=== PATIENT | female | born 1980 | race Caucasian/White ===

== ENCOUNTER 2023-11-23 10:56 | Emergency (ER) | payer MEDICAID, OTHER ==
[2023-11-23 11:13] VITALS: TEMP 98.2
[2023-11-23] MEDS ORDERED: SUBLIMAZE 100 MCG/2 ML ONE (11:20)
[2023-11-23] MEDS ORDERED: Sodium Chloride 0.9% 1000 ML 1,000 ML ONE (11:20)
[2023-11-23] MEDS ORDERED: Zofran 4 MG/2 ML VIAL ONE (11:20)
[2023-11-23] MEDS: Sodium Chloride 0.9% 1000 ML 1,000 ML IV STA (11:23)
[2023-11-23] MEDS: Zofran 4 MG/2 ML VIAL IV ONE (11:24)
[2023-11-23] MEDS: SUBLIMAZE 100 MCG/2 ML IV ONE (11:26)
[2023-11-23 12:26] VITALS: O2SAT 100
--- NOTE | 2023-11-23 12:44 | XRAY ---
CLINICAL HISTORY: fall COMPARISON: None. TECHNIQUE: A CT scan of the pelvis was performed without IV contrast. Coronal and sagittal reconstructive images were obtained. One of the following dose reduction techniques was utilized for this exam: Automated exposure control, adjustment of the mA and/or kV according to patient size, and use of iterative reconstruction. FINDINGS: No evidence of obvious fracture or dislocation was seen. Both hip joints are normal. The hip joints reveal normal rounded contour. No evidence of articular collapse. The joint spaces are normal. No loose bodies. There is no evidence of joint effusion. Bilateral sacroiliac joints appear normal. No lytic or sclerotic bone lesions. The visualized soft tissues are normal. Bilateral inguinal lymphadenopathy. IMPRESSION: No acute osseous injury or abnormality was seen in the CT scan pelvis. Electronically Signed by: Alannah Lyon MD. (11/23/2023 12:40:08 EDT)
--- NOTE | 2023-11-23 12:52 | ERPHSYRPT ---
- History of Present Illness Time Seen by Provider: 11/23/23 11:06 Source: patient Exam Limitations: no limitations Patient Subjective Stated Complaint: left hip pain, fall at work Triage Nursing Assessment: patient to ED c/o L hip pain after falling down 2 flights of stairs at work today. was at the top of stairs and hip gave out causing fall. left lower extremity externally rotated and shortened on exam. pain 8/10 improved to 6/10 with stabilization of a bedsheet. pedal pulses equal and cap reful < 3 sec distal to injury. extremities PWD, sensation less on effected side. Physician History: 43-year-old female presented in the ER after she missed a couple steps and fell on left hip prior to arrival at work. Patient reports moderate to severe sharp shooting pain in the left hip, exacerbated with minimal movements and partial relief with being still in a certain position. No numbness tingling or weakness of extremity reported. No loss of bowel or bladder control. Did not hit her head, no loss of consciousness. No midline back pain. No injury anywhere else. Allergies/Adverse Reactions: No Known Drug Allergies Allergy (Verified 11/23/23 10:57) Home Medications: Hydrochlorothiazide 25 mg [hydroDIURIL 25 MG] 1 ea DAILY 07/07/20 [History] Losartan Potassium 50 mg [Cozaar 50 MG] 1 ea DAILY 07/07/20 [History] Sertraline HCl 1 ea DAILY 07/07/20 [History] Sumatriptan Succinate 25 mg [Imitrex 25 MG] 25 mg PO DAILY PRN PRN 11/23/23 [History] Topiramate [Topiramate ER] 50 mg PO DAILY 11/23/23 [History] Hx Tetanus, Diphtheria Vaccination/Date Given: Yes Hx Influenza Vaccination/Date Given: No Hx Pneumococcal Vaccination/Date Given: No Travel Risk - International Travel Have you traveled outside of the country in past 3 weeks: No - Emerging Infectious Disease Are you exhibiting symptoms associated with any current EIDs: No - Review of Systems Constitutional: No Symptoms Eyes: No Symptoms Ears, Nose, & Throat: No Symptoms Respiratory: No Symptoms Cardiac: No Symptoms Abdominal/Gastrointestinal: No Symptoms Genitourinary Symptoms: No Symptoms Musculoskeletal: Fall, Injury, Joint Pain Skin: No Symptoms Neurological: No Symptoms Endocrine: No Symptoms Hematologic/Lymphatic: No Symptoms - Past Medical History Pertinent Past Medical History: Yes Neurological History: Migraines Cardiac History: Angina, Hypertension - Past Surgical History Past Surgical History: Yes Gastrointestinal: Cholecystectomy - Female History Hx Last Menstrual Period: last week Hx Now: No - Social History Smoking Status: Former smoker Exposure to second hand smoke: No Drug Use: none Patient Lives Alone: No - Social Determinants of Health Will the patient participate in the screening: Yes Do you worry about a steady place to live?: No Do you have any problems with any of the following?: No known problems In the past 12 months,have you had to go without utilities?: No Transportation Issues: No Has anyone in your support network made you feel unsafe?: No Have you or anyone in your house had to go without enough: No - Nursing Vital Signs Nursing Vital Signs: Initial Vital Signs Temperature 98.2 F 11/23/23 11:00 Pulse Rate 79 11/23/23 11:00 Respiratory Rate 18 11/23/23 11:00 Blood Pressure 142/115 11/23/23 11:00 O2 Sat by Pulse Oximetry 97 11/23/23 11:00 Pain Scale Pain Intensity 4 - [place] Coma Score Best Eye Response ([place]): (4) open spontaneously Best Verbal Response ([place]): (5) oriented Best Motor Response ([place]): (6) obeys commands [place] Total: 15 - Physical Exam General Appearance: no apparent distress, alert Head Injury: no evidence of injury Eye Exam: PERRL/EOMI, eyes nml inspection ENT Exam: airway nml, No evidence of ENT injury, No dental injury Neck Exam: supple, trachea midline, full range of motion, normal alignment, normal inspection Respiratory/Chest Exam: normal breath sounds, No chest tenderness, No respiratory distress Cardiovascular Exam: normal heart sounds, regular rate/rhythm Gastrointestinal Exam: soft, normal bowel sounds, No tenderness Back Exam: normal inspection, normal range of motion Extremity Exam: normal inspection, limited range of motion, bony point tenderness, hip tenderness (Left hip), pain with movement, tenderness Neurologic Exam: alert, oriented x 3, cooperative, 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 Skin Exam: normal color SpO2 Interpretation: normal SpO2: 100 O2 Delivery: Room Air Ordered Tests: Active Orders 24 hr Category Date Time Status HIP UNI (2V) INCL PEL IF DONE Stat Exams 11/23/23 11:14 Taken PELVIS WITHOUT CONTRAST [CT] Stat Exams 11/23/23 11:52 Completed Medication Summary Discontinued Medications Generic Name Dose Route Start Last Admin Trade Name Malcolm PRN Reason Stop Dose Admin Fentanyl Citrate 50 mcg 11/23/23 11:13 11/23/23 11:26 Fentanyl Citrate 100 Mcg/2 Ml* Vial IV 11/23/23 11:14 50 mcg STAT ONE Administration Fentanyl Citrate Confirm 11/23/23 11:20 Fentanyl Citrate 100 Mcg/2 Ml* Vial Administered 11/23/23 11:21 Dose 100 mcg .ROUTE .STK-MED ONE Sodium Chloride 1,000 mls @ 999 mls/hr 11/23/23 11:13 11/23/23 11:23 Sodium Chloride 0.9% 1000 Ml IV 11/23/23 12:13 999 mls/hr .Q1H1M STA Administration Sodium Chloride Confirm 11/23/23 11:20 Sodium Chloride 0.9% 1000 Ml Administered 11/23/23 11:21 Dose 1,000 mls @ ud .ROUTE .STK-MED ONE Ondansetron HCl 4 mg 11/23/23 11:13 11/23/23 11:24 Ondansetron Hcl 4 Mg/2 Ml Vial IV 11/23/23 11:14 4 mg STAT ONE Administration Ondansetron HCl Confirm 11/23/23 11:20 Ondansetron Hcl 4 Mg/2 Ml Vial Administered 11/23/23 11:21 Dose 4 mg .ROUTE .STK-MED ONE - Progress Progress: improved Progress Note: 11/23/23 12:50 43-year-old is evaluated in the ER for fall with injury to the left hip. She is given symptomatic treatment for pain, obtained x-rays hip and pelvis with no dislocation reviewed by me, questionable pelvic fracture reviewed by me with official report pending, obtained CT pelvis without contrast which is negative for acute osseous abnormality. I believe patient has contusion left hip. Will do NSAIDs, recommended ice, weightbearing as tolerated outpatient follow-up. No injury anywhere else, do not think needs other imaging or workup and it is a clear mechanical fall, do not think needs blood work. Discussed signs symptoms of worsening needing return to ER which she seems understanding. Counseled pt/family regarding: diagnosis, need for follow-up, rad results Medical Desision Making - Independent Historian Additional History obtained from: Spouse - Diagnostic Testing Diagnostic test were ordered, analyzed, and reviewed by me: Yes Radiological Interpretation: Interpreted by me, Reviewed by me, Teleradiologist Report - Risk of complications The pt has a mod risk of morbidity or mortality based on: Need for prescription drug management - Departure Departure Disposition: Home Clinical Impression: Contusion of hip, left, Fall Condition: Stable Critical Care Time: No Referrals: PAZ BUSTAMANTE FNP [Primary Care Provider] - Follow up with PCP 1 day JIMBO BLACKMAN MD [ACTIVE STAFF] - Follow up/PCP as directed (Call for appointment) Instructions: Contusion (DC) Additional Instructions: Take Tylenol/ibuprofen as needed. Intermittent ice application. Weightbearing as tolerated. Use cane/walker to avoid a fall. Follow-up with primary care/orthopedics for reevaluation. Return to ER for any worsening. Prescriptions: Hydrocodone/Acetaminophen [Hydrocodone-Acetamin 5-325 mg] 1 tab PO Q6HPRN PRN 3 Days #12 tablet MDD 4 PRN Reason: Pain Ibuprofen 600 mg PO Q6HPRN PRN 10 Days #20 tablet PRN Reason: Pain
[2023-11-23 13:22] VITALS: BP 112/77; PULSE 72; RESP 16
--- NOTE | 2023-11-23 19:09 | XRAY ---
Indication: Pain following fall. Comparison: None AP pelvis and 2 view left hip demonstrates normal bones, articulation, and soft tissues.
== END 2023-11-23 14:31 | disposition home or self-care (01) ==
LOC: ED 10:56
DX: S70.02XA Contusion of left hip, initial encounter (principal); W10.8XXA Fall (on) (from) other stairs and steps, initial encounter; Y92.148 Other place in prison as the place of occurrence of the external cause; Y99.0 Civilian activity done for income or pay; I10 Essential (primary) hypertension; Z79.899 Other long term (current) drug therapy
CPT/HCPCS: 72192; 73502; 96374; 96375; 99284; P9612; J2405; J3010